=== PATIENT | female | born 1995 | race American Indian/Alaskan Native ===

== ENCOUNTER 2016-12-24 06:08 | Emergency (ER) | payer SELFPAY ==
[2016-12-24 06:17] VITALS: BP 124/75
[2016-12-24 06:46] LABS: Basophils % (Auto) 0.3 % (0.0-1.8); Eosinophils % (Auto) 0.9 % (0.0-4.3); Mean Corpuscular HGB Conc 29 % (30-34); Platelet Count 208 K/mm3 (140-440); Red Blood Count 5.27 M/mm3 (3.65-5.03); Red Cell Distribution Width 19.1 % (13.2-15.2); White Blood Count 11.6 K/mm3 (4.5-11.0)
[2016-12-24 06:57] LABS: Alanine Aminotransferase 16 units/L (7-56); Albumin/Globulin Ratio 1.1 %; Alkaline Phosphatase 62 units/L (35-129); Anion Gap 18 mmol/L; BUN/Creatinine Ratio 9; Blood Urea Nitrogen 6 mg/dL (7-17); Calcium 8.9 mg/dL (8.4-10.2); Carbon Dioxide 22 mmol/L (22-30); Chloride 100.4 mmol/L (98-107); Glucose 99 mg/dL (65-100); Lipase 48 units/L (13-60); Potassium 3.9 mmol/L (3.6-5.0); Sodium 136 mmol/L (137-145); Total Protein 7.5 g/dL (6.3-8.2)
[2016-12-24 06:58] LABS: Hematocrit 30.8 % (30.3-42.9); Hemoglobin 8.9 gm/dl (10.1-14.3)
[2016-12-24 06:59] LABS: Mean Corpuscular Hemoglobin 17 pg (28-32); Mean Corpuscular Volume 59 fl (79-97)
[2016-12-24 08:09] LABS: Bilirubin,Urine NEG (Negative); Blood,Urine NEG (Negative); Ketones,Urine NEG (Negative); Leukocyte Esterase,Urine SM (Negative); Mucus,Urine FEW /HPF; Nitrite,Urine NEG (Negative); Protein,Urine <15 mg/dL mg/dL (Negative); Urobilinogen,Urine < 2.0 mg/dL (<2.0)
== END 2016-12-24 10:45 | disposition left against medical advice (07) ==
LOC: ED 06:08
DX: R10.10 Upper abdominal pain, unspecified (principal); Z53.21 Procedure and treatment not carried out due to patient leaving prior to being seen by health care provider
CPT/HCPCS: 36415; 80053; 81001; 83690; 84703; 85025

== ENCOUNTER 2016-12-26 12:46 | Inpatient (IN) | payer SELFPAY ==
[2016-12-26 13:27] LABS: Bilirubin,Urine NEG (Negative); Blood,Urine NEG (Negative); Ketones,Urine NEG (Negative); Leukocyte Esterase,Urine MOD (Negative); Mucus,Urine FEW /HPF; Nitrite,Urine NEG (Negative)
[2016-12-26 13:41] LABS: Basophils % (Auto) 0.3 % (0.0-1.8); Hematocrit 28.4 % (30.3-42.9); Hemoglobin 8.6 gm/dl (10.1-14.3); Mean Corpuscular HGB Conc 30 % (30-34); Platelet Count 179 K/mm3 (140-440); Red Blood Count 4.85 M/mm3 (3.65-5.03); White Blood Count 15.4 K/mm3 (4.5-11.0)
[2016-12-26 13:54] LABS: Mean Corpuscular Hemoglobin 18 pg (28-32); Mean Corpuscular Volume 59 fl (79-97)
[2016-12-26 13:57] LABS: Alanine Aminotransferase 38 units/L (7-56); Albumin 3.8 g/dL (3.9-5); Alkaline Phosphatase 77 units/L (35-129); Anion Gap 19 mmol/L; BUN/Creatinine Ratio 10; Blood Urea Nitrogen 8 mg/dL (7-17); Calcium 8.6 mg/dL (8.4-10.2); Carbon Dioxide 22 mmol/L (22-30); Chloride 98.8 mmol/L (98-107); Glucose 97 mg/dL (65-100); Lipase 40 units/L (13-60); Potassium 4.2 mmol/L (3.6-5.0); Sodium 136 mmol/L (137-145); Total Protein 7.5 g/dL (6.3-8.2)
[2016-12-26] MEDS ORDERED: PEPCID IV ONE (20:21)
[2016-12-26] MEDS ORDERED: CARAFATE PO ONE (20:21)
[2016-12-26] MEDS ORDERED: BENTYL PO ONE ×2 (20:21→22:00)
[2016-12-26] MEDS ORDERED: NACL 0.9% 500 ML 500 ML IV ONE (20:21)
[2016-12-26] MEDS ORDERED: TORADOL IV ONE (20:23)
[2016-12-26] MEDS ORDERED: NACL 0.9% 1000 ML 1,000 ML IV ONE ×2 (20:23→23:01)
[2016-12-26] MEDS ORDERED: TYLENOL PO ONE (20:23)
--- NOTE | 2016-12-26 20:23 | Emergency Department Report ---
ED General Adult HPI - General Chief complaint: Abdominal Pain Stated complaint: ABDOMINAL PAIN Time Seen by Provider: 12/26/16 20:13 Source: patient, RN notes reviewed, old records reviewed Mode of arrival: Ambulatory Limitations: No Limitations - History of Present Illness Initial comments: This is a 21-year-old female. The patient is previously unknown to this provider. Patient does not have a primary care doctor, denies chronic medical conditions and surgical history. Patient presents to the ER with epigastric, and bilateral lower quadrant abdominal pain. The pain has been present for 4-5 days. It is "all over." He does not have exacerbating or relieving factors. Patient indicated that she had nausea and vomiting, however this resolved 2 days ago. She is not having urinary symptoms or any gynecologic symptoms. -: Gradual Location: abdomen Radiation: non-radiation Severity scale (0 -10): 8 Quality: burning, aching Consistency: intermittent Improves with: none Worsens with: none Associated Symptoms: loss of appetite, malaise, nausea/vomiting, weakness. denies: confusion, chest pain, cough - Related Data Home Medications Medication Instructions Recorded Confirmed Last Taken No Known Home Medications [No 12/27/16 12/27/16 Unknown Reported Home Medications] Allergies Allergy/AdvReac Type Severity Reaction Status Date / Time fish derived Allergy Swelling Verified 12/24/16 06:10 strawberry Allergy Swelling Verified 12/24/16 06:10 ED Review of Systems ROS: Stated complaint: ABDOMINAL PAIN Other details as noted in HPI Constitutional: denies: fever Eyes: denies: vision change ENT: denies: epistaxis Respiratory: denies: cough Cardiovascular: as per HPI. denies: chest pain Gastrointestinal: abdominal pain Genitourinary: denies: dysuria Musculoskeletal: denies: back pain Neurological: denies: headache Psychiatric: as per HPI, anxiety ED Past Medical Hx - Past Medical History Hx Asthma: Yes - Social History Smoking Status: Current Every Day Smoker Substance Use Type: Alcohol - Medications Home Medications: Home Medications Medication Instructions Recorded Confirmed Last Taken Type No Known Home Medications [No 12/27/16 12/27/16 Unknown History Reported Home Medications] ED Physical Exam - General Limitations: No Limitations General appearance: alert, in no apparent distress - Head Head exam: Present: atraumatic, normocephalic - Eye Eye exam: Present: normal appearance, EOMI. Absent: nystagmus - ENT ENT exam: Present: normal exam, normal orophraynx, mucous membranes moist, normal external ear exam - Neck Neck exam: Present: normal inspection, full ROM. Absent: tenderness, meningismus - Respiratory Respiratory exam: Present: normal lung sounds bilaterally. Absent: respiratory distress - Cardiovascular Cardiovascular Exam: Present: normal rhythm, tachycardia, normal heart sounds. Absent: systolic murmur, diastolic murmur, rubs, gallop - GI/Abdominal GI/Abdominal exam: Present: soft, tenderness, normal bowel sounds, other ( epigastric tenderness. Suprapubic tenderness. No lower abdominal tenderness.) . Absent: distended, guarding, rebound, pulsatile mass - External exam: Present: normal external exam Speculum exam: Present: normal speculum exam. Absent: erythema, cervical discharge, vaginal bleeding Bi-manual exam: Present: normal bi-manual exam, other (escorted by nurse Crista Rg). Absent: cervical motion tendernes, adnexal tenderness, adnexal mass, uterine enlargement, uterine tenderness - Extremities Exam Extremities exam: Present: normal inspection, full ROM, normal capillary refill. Absent: pedal edema, calf tenderness - Back Exam Back exam: Present: normal inspection, full ROM. Absent: tenderness, CVA tenderness (R), paraspinal tenderness - Neurological Exam Neurological exam: Present: alert, oriented X3, normal gait, other (Extraocular movements intact. Tongue midline. No facial droop. Facial sensation intact to light touch in the V1, V2, V3 distribution bilaterally. 5 and 5 strength in 4 extremities.. Sensation is intact to light touch in 4 extremities.). Absent : motor sensory deficit - Psychiatric Psychiatric exam: Present: normal affect, normal mood - Skin Skin exam: Present: warm, dry, intact, normal color. Absent: rash ED Course Vital Signs 12/26/16 12/26/16 12/26/16 12:53 19:10 19:11 Temperature 99.2 F 99.6 F Pulse Rate 111 H 91 H Respiratory 20 16 16 Rate Blood Pressure 113/72 Blood Pressure 120/63 [Left] O2 Sat by Pulse 99 99 99 Oximetry 12/26/16 12/26/16 12/26/16 21:40 21:42 22:12 Temperature Pulse Rate Respiratory 18 18 18 Rate Blood Pressure Blood Pressure [Left] O2 Sat by Pulse Oximetry 12/26/16 12/26/16 12/26/16 22:40 23:29 23:30 Temperature Pulse Rate Respiratory 18 Rate Blood Pressure 103/48 103/48 Blood Pressure [Left] O2 Sat by Pulse 96 Oximetry 12/26/16 12/26/16 12/26/16 23:35 23:41 23:51 Temperature Pulse Rate Respiratory Rate Blood Pressure 103/48 103/48 103/48 Blood Pressure [Left] O2 Sat by Pulse 99 99 100 Oximetry 12/27/16 12/27/16 12/27/16 00:01 00:11 00:21 Temperature Pulse Rate Respiratory Rate Blood Pressure 105/76 105/76 105/76 Blood Pressure [Left] O2 Sat by Pulse 100 99 99 Oximetry 12/27/16 00:30 Temperature Pulse Rate Respiratory Rate Blood Pressure 105/76 Blood Pressure [Left] O2 Sat by Pulse 67 L Oximetry - Reevaluation(s) Reevaluation #1: 12/26/16 21:48 Differential diagnosis, including but not limited to: Cystitis, pelvic inflammatory disease, hiatal hernia, pancreatitis, duodenitis, enteritis Assessment and plan: 21-year-old female with complaint of diffuse abdominal pain , low-grade temperature, tachycardia, no lower abdominal tenderness, and benign gynecologic examination. Her urinalysis is appreciated, however she denies urinary symptoms, and has a benign gynecologic examination. Therefore think pelvic inflammatory disease is unlikely, however gonorrhea/chlamydia screen have been sent. The patient's pain was treated with appropriate pain medication, her tachycardia resolved, and she was able to tolerate liquid feeds. Given lack of gynecologic tenderness, do not feel that patient requires an emergent pelvic ultrasound, a CT scan of abdomen and pelvis was performed, and results are pending at this time. Reevaluation #2: 12/26/16 23:00 CT scan of the abdomen and pelvis suggests a calculus cholecystitis. Patient has tachycardia, leukocytosis, low-grade temperature, is meeting criteria for systemic inflammatory response syndrome. Case discussed with general surgeon on -call, Dr. dowd, he recommends nothing by mouth after midnight, is agreeable to IV Zosyn, and recommends medical admission, and he will consult. Case is presented to the Hospital physician, Dr. Oropeza, he graciously except the patient to the medical service. A right upper quadrant ultrasound was ordered. I will defer to the inpatient team to follow this up. 12/27/16 01:37 ED Medical Decision Making - Lab Data Result diagrams: 12/27/16 06:46 12/27/16 06:46 Vital Signs 12/26/16 12/26/16 12/26/16 12:53 19:10 19:11 Temperature 99.2 F 99.6 F Pulse Rate 111 H 91 H Respiratory 20 16 16 Rate Blood Pressure 113/72 Blood Pressure 120/63 [Left] O2 Sat by Pulse 99 99 99 Oximetry 12/26/16 12/26/16 21:40 21:42 Temperature Pulse Rate Respiratory 18 18 Rate Blood Pressure Blood Pressure [Left] O2 Sat by Pulse Oximetry Lab Results 12/26/16 12/26/16 12/26/16 Range/Units 12:59 12:59 13:11 WBC 15.4 H (4.5-11.0) K/mm3 RBC 4.85 (3.65-5.03) M/mm3 Hgb 8.6 L (10.1-14.3) gm/dl Hct 28.4 L (30.3-42.9) % MCV 59 L (79-97) fl MCH 18 L (28-32) pg MCHC 30 (30-34) % RDW 19.0 H (13.2-15.2) % Plt Count 179 (140-440) K/mm3 Lymph % (Auto) 13.8 (13.4-35.0) % [place] % (Auto) 8.6 H (0.0-7.3) % Eos % (Auto) 1.0 (0.0-4.3) % Baso % (Auto) 0.3 (0.0-1.8) % Lymph # 2.1 (1.2-5.4) K/mm3 [place] # 1.3 H (0.0-0.8) K/mm3 Eos # 0.2 (0.0-0.4) K/mm3 Baso # 0.0 (0.0-0.1) K/mm3 Seg Neutrophils % 76.3 H (40.0-70.0) % Seg Neutrophils # 11.8 H (1.8-7.7) K/mm3 Sodium 136 L (137-145) mmol/L Potassium 4.2 (3.6-5.0) mmol/L Chloride 98.8 (98-107) mmol/L Carbon Dioxide 22 (22-30) mmol/L Anion Gap 19 mmol/L BUN 8 (7-17) mg/dL Creatinine 0.8 (0.7-1.2) mg/dL Estimated GFR > 60 ml/min BUN/Creatinine Ratio 10 % Glucose 97 (65-100) mg/dL Calcium 8.6 (8.4-10.2) mg/dL Total Bilirubin 0.40 (0.1-1.2) mg/dL AST 36 (5-40) units/L ALT 38 (7-56) units/L Alkaline Phosphatase 77 (35-129) units/L Total Protein 7.5 (6.3-8.2) g/dL Albumin 3.8 L (3.9-5) g/dL Albumin/Globulin Ratio 1.0 % Lipase 40 (13-60) units/L Urine Color Yellow (Yellow) Urine Turbidity Clear (Clear) Urine pH 6.0 (5.0-7.0) Ur Specific [place] 1.019 (1.003-1.030) Urine Protein 30 mg/dl (Negative) mg/dL Urine Glucose (UA) Neg (Negative) mg/dL Urine Ketones Neg (Negative) mg/dL Urine Blood Neg (Negative) Urine Nitrite Neg (Negative) Urine Bilirubin Neg (Negative) Urine Urobilinogen 4.0 (<2.0) mg/dL Ur Leukocyte Esterase Mod (Negative) Urine WBC (Auto) 25.0 H (0.0-6.0) /HPF Urine RBC (Auto) 4.0 (0.0-6.0) /HPF U Epithel Cells (Auto) 3.0 (0-13.0) /HPF Urine Mucus Few /HPF Urine HCG, Qual (Negative) 12/26/16 Range/Units 13:55 WBC (4.5-11.0) K/mm3 RBC (3.65-5.03) M/mm3 Hgb (10.1-14.3) gm/dl Hct (30.3-42.9) % MCV (79-97) fl MCH (28-32) pg MCHC (30-34) % RDW (13.2-15.2) % Plt Count (140-440) K/mm3 Lymph % (Auto) (13.4-35.0) % [place] % (Auto) (0.0-7.3) % Eos % (Auto) (0.0-4.3) % Baso % (Auto) (0.0-1.8) % Lymph # (1.2-5.4) K/mm3 [place] # (0.0-0.8) K/mm3 Eos # (0.0-0.4) K/mm3 Baso # (0.0-0.1) K/mm3 Seg Neutrophils % (40.0-70.0) % Seg Neutrophils # (1.8-7.7) K/mm3 Sodium (137-145) mmol/L Potassium (3.6-5.0) mmol/L Chloride (98-107) mmol/L Carbon Dioxide (22-30) mmol/L Anion Gap mmol/L BUN (7-17) mg/dL Creatinine (0.7-1.2) mg/dL Estimated GFR ml/min BUN/Creatinine Ratio % Glucose (65-100) mg/dL Calcium (8.4-10.2) mg/dL Total Bilirubin (0.1-1.2) mg/dL AST (5-40) units/L ALT (7-56) units/L Alkaline Phosphatase (35-129) units/L Total Protein (6.3-8.2) g/dL Albumin (3.9-5) g/dL Albumin/Globulin Ratio % Lipase (13-60) units/L Urine Color (Yellow) Urine Turbidity (Clear) Urine pH (5.0-7.0) Ur Specific [place] (1.003-1.030) Urine Protein (Negative) mg/dL Urine Glucose (UA) (Negative) mg/dL Urine Ketones (Negative) mg/dL Urine Blood (Negative) Urine Nitrite (Negative) Urine Bilirubin (Negative) Urine Urobilinogen (<2.0) mg/dL Ur Leukocyte Esterase (Negative) Urine WBC (Auto) (0.0-6.0) /HPF Urine RBC (Auto) (0.0-6.0) /HPF U Epithel Cells (Auto) (0-13.0) /HPF Urine Mucus /HPF Urine HCG, Qual Negative (Negative) - Radiology Data Radiology results: pending, report reviewed Critical care attestation.: If time is entered above; I have spent that time in minutes in the direct care of this critically ill patient, excluding procedure time. ED Disposition Clinical Impression: SIRS (systemic inflammatory response syndrome), Acute acalculous cholecystitis Disposition: DC-09 OP ADMIT IP TO THIS HOSP Is pt being admited?: Yes Condition: Good
--- NOTE | 2016-12-26 22:04 | Cat Scan Report ---
FINAL REPORT PROCEDURE: CT ABDOMEN PELVIS W CON TECHNIQUE: Computerized axial tomography of the abdomen and pelvis was performed after the IV injection of iodinated nonionic contrast. HISTORY: abd pain COMPARISON: No prior studies are available for comparison. FINDINGS: Visualized lower thorax: No significant abnormality. Liver: Normal size and attenuation. Spleen: Normal size and attenuation. Gallbladder and biliary system: There is significant thickening of the gallbladder wall. No discrete stones are seen. There is no biliary ductal dilatation. Findings suggest acute acalculous cholecystitis.. Pancreas: Normal. Adrenals: Normal. Kidneys: There are tiny stones in the right kidney. There are no ureteral stones. There is no hydronephrosis.. GI tract: There is no bowel obstruction, colitis or enteritis. The appendix is normal.. Lymph nodes and mesentery: There are borderline prominent mesenteric and retroperitoneal lymph nodes which are nonspecific but could be reactive.. Vasculature: Normal. Bladder: Normal. Reproductive organs: Uterus is unremarkable. Ovaries are unremarkable.. Peritoneum: There is minimal free pelvic fluid which is nonspecific and could be related to ovarian cyst rupture.. Musculoskeletal structures: No significant abnormality. Other: None. IMPRESSION: There is significant thickening of the gallbladder wall. No discrete stones are seen. There is no biliary ductal dilatation. Findings suggest acute acalculous cholecystitis.. There are tiny stones in the right kidney. There are no ureteral stones. There is no hydronephrosis.. There is no bowel obstruction, colitis or enteritis. The appendix is normal.. There are borderline prominent mesenteric and retroperitoneal lymph nodes which are nonspecific but could be reactive.. Uterus is unremarkable. Ovaries are unremarkable.. There is minimal free pelvic fluid which is nonspecific and could be related to ovarian cyst rupture..
[2016-12-26] MEDS ORDERED: ZOSYN/NS 4.5GM/100ML 4.5 GM/100 ML VIAL IV ONE (22:54)
--- NOTE | 2016-12-26 23:21 | History and Physical Report ---
History of Present Illness Date of examination: 12/26/16 Chief complaint: Abdominal pain History of present illness: 21-year-old -[place] female with no significant past medical history presented to the emergency department complaining of epigastric pain for the last 4 days. Pain is sharp, 10 out of 10, with radiation to the back, associated with nausea and vomiting, no alleviating or aggravating factors. Patient denied fever, chills, diarrhea, loss of appetite. Patient has been constant for the last 4 days. No previous history of gallstones. REVIEW OF SYSTEMS: GENERAL: no weight change, no fatigue, no fever HEAD: no head ache EYES: no blurry vision, no acute visual loss EARS: no hearing loss, no discharge, no earache NOSE: no stuffiness, no sneezing, no discharge MOUTH, THROAT AND NECK: no bleeding gums, no sore throat, no swollen neck CARDIAC: no palpitations, no dyspnea on exertion, no orthopnea, no PND, no edema , no chest pain RESPIRATORY: no shortness of breath, no wheeze, no cough, no sputum, no hemoptysis, no asthma GI: As stated in the HPI. URINARY: no change in frequency, no urgency, no polyuria, no hematuria, no incontinence MUSCULOSKELETAL: no muscle weakness, no pain, no joint stiffness NEUROLOGIC: no loss of sensation/numbness, no tingling, no tremors, no weakness/ paralysis HEMATOLOGIC: no anemia, no easy bruising SKIN: no rashes ENDOCRINE: no heat/cold intolerance, no polyuria, no polydipsia, no thyroid problems, no diabetes PSYCHIATRIC: no anxiety, no depression, no suicidal ideations Past History Past Medical History: No medical history Past Surgical History: No surgical history Social history: smoking (5-6 cigarettes a day), full code. denies: alcohol abuse, prescription drug abuse, IV drug use Family history: stroke (dad) Medications and Allergies Allergies Allergy/AdvReac Type Severity Reaction Status Date / Time fish derived Allergy Swelling Verified 12/24/16 06:10 strawberry Allergy Swelling Verified 12/24/16 06:10 Active Meds: Active Medications Hydromorphone HCl (Dilaudid) 0.5 mg IV Q3H PRN PRN Reason: Pain , Severe (7-10) Piperacillin Sod/Tazobactam Sod (Zosyn/Ns 4.5gm/100ml) 4.5 gm in 100 mls @ 200 mls/hr IV ONCE.ED ONE Stop: 12/26/16 23:23 Sodium Chloride (Nacl 0.9% 1000 Ml) 1,000 mls @ 999 mls/hr IV BOLUS ONE Stop: 12/27/16 00:01 Piperacillin Sod/Tazobactam Sod (Zosyn/Ns 4.5gm/100ml) 4.5 gm in 100 mls @ 200 mls/hr IV Q6HR KATY PRN Reason: Protocol Exam - Physical Exam Narrative exam: Not in cardiopulmonary distress. The patient appeared well nourished and normally developed. Vital signs as documented. Head exam is unremarkable. No scleral icterus . Neck is without jugular venous distension, thyromegaly, or carotid bruits. Lungs are clear to auscultation. Cardiac exam reveals regular rate and Rhythm. First and second heart sounds normal. No murmurs, rubs or gallops. Abdominal exam reveals mild right upper quadrant pain. Extremities are nonedematous and both femoral and pedal pulses are normal. [employer]ER: Alert and oriented 3. No focal weakness. - Constitutional Vitals: Temp Pulse Resp BP Pulse Ox 99.6 F 91 H 18 120/63 99 12/26/16 19:10 12/26/16 19:10 12/26/16 22:40 12/26/16 19:10 12/26/16 19:11 Results - Labs CBC & Chem 7: 12/26/16 12:59 12/26/16 12:59 Labs: Laboratory Last Values WBC 15.4 K/mm3 (4.5-11.0) H 12/26/16 12:59 RBC 4.85 M/mm3 (3.65-5.03) 12/26/16 12:59 Hgb 8.6 gm/dl (10.1-14.3) L 12/26/16 12:59 Hct 28.4 % (30.3-42.9) L 12/26/16 12:59 MCV 59 fl (79-97) L 12/26/16 12:59 MCH 18 pg (28-32) L 12/26/16 12:59 MCHC 30 % (30-34) 12/26/16 12:59 RDW 19.0 % (13.2-15.2) H 12/26/16 12:59 Plt Count 179 K/mm3 (140-440) 12/26/16 12:59 Lymph % (Auto) 13.8 % (13.4-35.0) 12/26/16 12:59 [place] % (Auto) 8.6 % (0.0-7.3) H 12/26/16 12:59 Eos % (Auto) 1.0 % (0.0-4.3) 12/26/16 12:59 Baso % (Auto) 0.3 % (0.0-1.8) 12/26/16 12:59 Lymph # 2.1 K/mm3 (1.2-5.4) 12/26/16 12:59 [place] # 1.3 K/mm3 (0.0-0.8) H 12/26/16 12:59 Eos # 0.2 K/mm3 (0.0-0.4) 12/26/16 12:59 Baso # 0.0 K/mm3 (0.0-0.1) 12/26/16 12:59 Seg Neutrophils % 76.3 % (40.0-70.0) H 12/26/16 12:59 Seg Neutrophils # 11.8 K/mm3 (1.8-7.7) H 12/26/16 12:59 Sodium 136 mmol/L (137-145) L 12/26/16 12:59 Potassium 4.2 mmol/L (3.6-5.0) 12/26/16 12:59 Chloride 98.8 mmol/L (98-107) 12/26/16 12:59 Carbon Dioxide 22 mmol/L (22-30) 12/26/16 12:59 Anion Gap 19 mmol/L 12/26/16 12:59 BUN 8 mg/dL (7-17) 12/26/16 12:59 Creatinine 0.8 mg/dL (0.7-1.2) 12/26/16 12:59 Estimated GFR > 60 ml/min 12/26/16 12:59 BUN/Creatinine Ratio 10 % 12/26/16 12:59 Glucose 97 mg/dL (65-100) 12/26/16 12:59 Calcium 8.6 mg/dL (8.4-10.2) 12/26/16 12:59 Total Bilirubin 0.40 mg/dL (0.1-1.2) 12/26/16 12:59 AST 36 units/L (5-40) 12/26/16 12:59 ALT 38 units/L (7-56) 12/26/16 12:59 Alkaline Phosphatase 77 units/L (35-129) 12/26/16 12:59 Total Protein 7.5 g/dL (6.3-8.2) 12/26/16 12:59 Albumin 3.8 g/dL (3.9-5) L 12/26/16 12:59 Albumin/Globulin Ratio 1.0 % 12/26/16 12:59 Lipase 40 units/L (13-60) 12/26/16 12:59 Urine Color Yellow (Yellow) 12/26/16 13:11 Urine Turbidity Clear (Clear) 12/26/16 13:11 Urine pH 6.0 (5.0-7.0) 12/26/16 13:11 Ur Specific [place] 1.019 (1.003-1.030) 12/26/16 13:11 Urine Protein 30 mg/dl mg/dL (Negative) 12/26/16 13:11 Urine Glucose (UA) Neg mg/dL (Negative) 12/26/16 13:11 Urine Ketones Neg mg/dL (Negative) 12/26/16 13:11 Urine Blood Neg (Negative) 12/26/16 13:11 Urine Nitrite Neg (Negative) 12/26/16 13:11 Urine Bilirubin Neg (Negative) 12/26/16 13:11 Urine Urobilinogen 4.0 mg/dL (<2.0) 12/26/16 13:11 Ur Leukocyte Esterase Mod (Negative) 12/26/16 13:11 Urine WBC (Auto) 25.0 /HPF (0.0-6.0) H 12/26/16 13:11 Urine RBC (Auto) 4.0 /HPF (0.0-6.0) 12/26/16 13:11 U Epithel Cells (Auto) 3.0 /HPF (0-13.0) 12/26/16 13:11 Urine Mucus Few /HPF 12/26/16 13:11 Urine HCG, Qual Negative (Negative) 12/26/16 13:55 - Imaging and Cardiology CT scan - abdomen: report reviewed (acalculous cholecystitis) US - abdomen: report reviewed (cholelithiasis, sludge filling the gallbladder) Assessment and Plan Assessment and plan: Chronic acalculus cholecystitis - CT was suggestive of acalculus cholecystitis - Ultrasound of the abdomen suggestive of cholelithiasis and sludge filling the gallbladder - Surgery was consulted by the emergency doctor and he recommended to be nothing by mouth after midnight and evaluate her in the morning Sepsis - IV Zosyn, IV fluids UTI - Continue his IV antibiotics DVT prophylaxis - SCDs because patient may have surgery in the morning Disposition - to Med/Surg floor. Advance Directives: Yes VTE prophylaxis?: Mechanical Reason for no VTE Prophylaxis: Surgical contraindication Plan of care discussed with patient/family: Yes
--- NOTE | 2016-12-27 00:07 | Ultrasound Report ---
FINAL REPORT EXAM: US ABDOMEN LIMITED HISTORY: abd pain TECHNIQUE: Routine sonographic evaluation was obtained of the right upper outer quadrant. Correlation with the CT scan of the abdomen and pelvis of 12/26/2016 was reviewed. FINDINGS: The gallbladder is normal in size and contains sludge and shadowing stones. One of the stones is in the neck of the gallbladder. There is mild gallbladder wall thickening measuring 2.3 millimeters. A Wiley sign was not elicited when scanning over the gallbladder. The common bile duct is normal caliber 5.4 millimeters. The liver is normal in size and echotexture. Free fluid is not seen. The right kidney shows no evidence of hydronephrosis. IMPRESSION: Cholelithiasis and sludge filling the gallbladder. No definite secondary signs of acute cholecystitis. Normal biliary tree. No evidence of right-sided hydronephrosis.
[2016-12-27] MEDS: ZOSYN/NS 4.5GM/100ML 4.5 GM/100 ML VIAL IV SCH ×4 (06:21→23:47)
[2016-12-27] MEDS: NACL 0.9% 1000 ML 1,000 ML IV SCH ×2 (06:21→18:36)
[2016-12-27 07:37] LABS: Anion Gap 18 mmol/L; BUN/Creatinine Ratio 11; Blood Urea Nitrogen 9 mg/dL (7-17); Calcium 7.6 mg/dL (8.4-10.2); Carbon Dioxide 22 mmol/L (22-30); Chloride 105.3 mmol/L (98-107); Glucose 86 mg/dL (65-100); Potassium 3.8 mmol/L (3.6-5.0); Sodium 141 mmol/L (137-145)
[2016-12-27 07:39] LABS: Basophils % (Auto) 0.6 % (0.0-1.8); Eosinophils % (Auto) 3.1 % (0.0-4.3); Hematocrit 25.4 % (30.3-42.9); Hemoglobin 7.8 gm/dl (10.1-14.3); Mean Corpuscular HGB Conc 31 % (30-34); Platelet Count 172 K/mm3 (140-440); Red Blood Count 4.35 M/mm3 (3.65-5.03); Red Cell Distribution Width 18.7 % (13.2-15.2); White Blood Count 10.5 K/mm3 (4.5-11.0)
[2016-12-27 07:54] LABS: Mean Corpuscular Hemoglobin 18 pg (28-32); Mean Corpuscular Volume 59 fl (79-97)
--- NOTE | 2016-12-27 09:35 | Progress Note ---
Assessment and Plan Assessment and plan: 21-year-old -[place] female with no significant past medical history presented to the emergency department complaining of epigastric pain x 4days Acute calculus cholecystitis - radiolucent stones which were not seen on CT but visualized on US - Surgery was consulted , keep NPO -planned for Lap ander, minimally invasive approach Sepsis - IV Zosyn, IV fluids UTI? - Continue IV antibiotics, fup urine cx dvt ppx early ambulation History Interval history: she is still c/o RUQ pain, and anorexia, pain is dull, 6/10, exacerbated by eating, non radiating, relieved by fasting Hospitalist Physical - Constitutional Vitals: Temp Pulse Resp BP Pulse Ox 98.4 F 79 18 111/68 97 12/27/16 08:01 12/27/16 08:01 12/27/16 08:01 12/27/16 08:01 12/27/16 08:01 General appearance: Present: no acute distress, mild distress - EENT Eyes: Present: PERRL, EOM intact ENT: hearing intact, clear oral mucosa - Neck Neck: Present: supple, normal ROM - Respiratory Respiratory effort: normal Respiratory: bilateral: CTA - Cardiovascular Rhythm: regular Heart Sounds: Present: S1 & S2 - Extremities Extremities: no ischemia Peripheral Pulses: within normal limits - Abdominal General gastrointestinal: soft Localized gastrointestinal: tender: RUQ - Integumentary Integumentary: Present: clear, warm, dry - Psychiatric Psychiatric: appropriate mood/affect, intact judgment & insight - Neurologic Neurologic: CNII-XII intact, moves all extremities Results - Labs CBC & Chem 7: 12/27/16 06:46 12/27/16 06:46 Labs: Laboratory Last Values WBC 10.5 K/mm3 (4.5-11.0) 12/27/16 06:46 RBC 4.35 M/mm3 (3.65-5.03) 12/27/16 06:46 Hgb 7.8 gm/dl (10.1-14.3) L 12/27/16 06:46 Hct 25.4 % (30.3-42.9) L 12/27/16 06:46 MCV 59 fl (79-97) L 12/27/16 06:46 MCH 18 pg (28-32) L 12/27/16 06:46 MCHC 31 % (30-34) 12/27/16 06:46 RDW 18.7 % (13.2-15.2) H 12/27/16 06:46 Plt Count 172 K/mm3 (140-440) 12/27/16 06:46 Lymph % (Auto) 29.0 % (13.4-35.0) 12/27/16 06:46 [place] % (Auto) 9.6 % (0.0-7.3) H 12/27/16 06:46 Eos % (Auto) 3.1 % (0.0-4.3) 12/27/16 06:46 Baso % (Auto) 0.6 % (0.0-1.8) 12/27/16 06:46 Lymph # 3.1 K/mm3 (1.2-5.4) 12/27/16 06:46 [place] # 1.0 K/mm3 (0.0-0.8) H 12/27/16 06:46 Eos # 0.3 K/mm3 (0.0-0.4) 12/27/16 06:46 Baso # 0.1 K/mm3 (0.0-0.1) 12/27/16 06:46 Seg Neutrophils % 57.7 % (40.0-70.0) 12/27/16 06:46 Seg Neutrophils # 6.1 K/mm3 (1.8-7.7) 12/27/16 06:46 Sodium 141 mmol/L (137-145) 12/27/16 06:46 Potassium 3.8 mmol/L (3.6-5.0) 12/27/16 06:46 Chloride 105.3 mmol/L (98-107) 12/27/16 06:46 Carbon Dioxide 22 mmol/L (22-30) 12/27/16 06:46 Anion Gap 18 mmol/L 12/27/16 06:46 BUN 9 mg/dL (7-17) 12/27/16 06:46 Creatinine 0.8 mg/dL (0.7-1.2) 12/27/16 06:46 Estimated GFR > 60 ml/min 12/27/16 06:46 BUN/Creatinine Ratio 11 % 12/27/16 06:46 Glucose 86 mg/dL (65-100) 12/27/16 06:46 Lactic Acid 1.00 mmol/L (0.7-2.0) 12/27/16 01:25 Calcium 7.6 mg/dL (8.4-10.2) L 12/27/16 06:46 Total Bilirubin 0.40 mg/dL (0.1-1.2) 12/26/16 12:59 AST 36 units/L (5-40) 12/26/16 12:59 ALT 38 units/L (7-56) 12/26/16 12:59 Alkaline Phosphatase 77 units/L (35-129) 12/26/16 12:59 Total Protein 7.5 g/dL (6.3-8.2) 12/26/16 12:59 Albumin 3.8 g/dL (3.9-5) L 12/26/16 12:59 Albumin/Globulin Ratio 1.0 % 12/26/16 12:59 Lipase 40 units/L (13-60) 12/26/16 12:59 Urine Color Yellow (Yellow) 12/26/16 13:11 Urine Turbidity Clear (Clear) 12/26/16 13:11 Urine pH 6.0 (5.0-7.0) 12/26/16 13:11 Ur Specific [place] 1.019 (1.003-1.030) 12/26/16 13:11 Urine Protein 30 mg/dl mg/dL (Negative) 12/26/16 13:11 Urine Glucose (UA) Neg mg/dL (Negative) 12/26/16 13:11 Urine Ketones Neg mg/dL (Negative) 12/26/16 13:11 Urine Blood Neg (Negative) 12/26/16 13:11 Urine Nitrite Neg (Negative) 12/26/16 13:11 Urine Bilirubin Neg (Negative) 12/26/16 13:11 Urine Urobilinogen 4.0 mg/dL (<2.0) 12/26/16 13:11 Ur Leukocyte Esterase Mod (Negative) 12/26/16 13:11 Urine WBC (Auto) 25.0 /HPF (0.0-6.0) H 12/26/16 13:11 Urine RBC (Auto) 4.0 /HPF (0.0-6.0) 12/26/16 13:11 U Epithel Cells (Auto) 3.0 /HPF (0-13.0) 12/26/16 13:11 Urine Mucus Few /HPF 12/26/16 13:11 Urine HCG, Qual Negative (Negative) 12/26/16 13:55 - Imaging and Cardiology CT scan - abdomen: image reviewed (significant GB wall thickening, no stones) US - abdomen: image reviewed (Stones seen and cholecystitis)
--- NOTE | 2016-12-27 12:46 | Progress Note ---
Assessment and Plan Full consult dictated Healthy 21 y/o female - acute cholecystitis. anemia Pt states "feeling better" less pain Abd soft - epig & RUQ tenderness noted. films reviewed acute cholecystitis rec NPO IVF hydration IV antibiotics will monitor clinically Keep NPO until pain resolves may need to proceed with cholecystecomy during this admission if clinically doesn't improve. But would prefer to proceed with semi-elective lap GB in a couple of wks once acute inflammation subsides to improve chances of being able to perform laparscopic vs having to do open procedure Selected Entries 12/27/16 08:01 Temperature 98.4 F Pulse Rate 79 Respiratory 18 Rate Blood Pressure 111/68 Laboratory Tests 12/26/16 12/26/16 12/27/16 12:59 12:59 06:46 WBC 15.4 H 10.5 Hgb 7.8 L Hct 25.4 L Sodium Potassium Chloride Carbon Dioxide Anion Gap BUN Creatinine Calcium Iron TIBC Total Bilirubin 0.40 AST 36 ALT 38 Alkaline Phosphatase 77 Lipase 40 12/27/16 12/27/16 06:46 06:46 WBC Hgb Hct Sodium 141 Potassium 3.8 Chloride 105.3 Carbon Dioxide 22 Anion Gap 18 BUN 9 Creatinine 0.8 Calcium 7.6 L Iron 14 L TIBC 256 Total Bilirubin AST ALT Alkaline Phosphatase Lipase Objective Vital Signs - 12hr 12/27/16 12/27/16 01:31 08:01 Temperature 98.2 F 98.4 F Pulse Rate 79 79 Respiratory 14 18 Rate Blood Pressure 114/62 111/68 O2 Sat by Pulse 100 97 Oximetry - Labs 12/27/16 06:46 12/27/16 06:46 Diabetes panel 12/26/16 12/27/16 Range/Units 12:59 06:46 Sodium 136 L 141 (137-145) mmol/L Potassium 4.2 3.8 (3.6-5.0) mmol/L Chloride 98.8 105.3 (98-107) mmol/L Carbon Dioxide 22 22 (22-30) mmol/L BUN 8 9 (7-17) mg/dL Creatinine 0.8 0.8 (0.7-1.2) mg/dL Glucose 97 86 (65-100) mg/dL Calcium 8.6 7.6 L (8.4-10.2) mg/dL AST 36 (5-40) units/L ALT 38 (7-56) units/L Alkaline Phosphatase 77 (35-129) units/L Total Protein 7.5 (6.3-8.2) g/dL Albumin 3.8 L (3.9-5) g/dL Calcium panel 12/26/16 12/27/16 Range/Units 12:59 06:46 Calcium 8.6 7.6 L (8.4-10.2) mg/dL Albumin 3.8 L (3.9-5) g/dL Pituitary panel 12/26/16 12/27/16 Range/Units 12:59 06:46 Sodium 136 L 141 (137-145) mmol/L Potassium 4.2 3.8 (3.6-5.0) mmol/L Chloride 98.8 105.3 (98-107) mmol/L Carbon Dioxide 22 22 (22-30) mmol/L BUN 8 9 (7-17) mg/dL Creatinine 0.8 0.8 (0.7-1.2) mg/dL Glucose 97 86 (65-100) mg/dL Calcium 8.6 7.6 L (8.4-10.2) mg/dL Adrenal panel 12/26/16 12/27/16 Range/Units 12:59 06:46 Sodium 136 L 141 (137-145) mmol/L Potassium 4.2 3.8 (3.6-5.0) mmol/L Chloride 98.8 105.3 (98-107) mmol/L Carbon Dioxide 22 22 (22-30) mmol/L BUN 8 9 (7-17) mg/dL Creatinine 0.8 0.8 (0.7-1.2) mg/dL Glucose 97 86 (65-100) mg/dL Calcium 8.6 7.6 L (8.4-10.2) mg/dL Total Bilirubin 0.40 (0.1-1.2) mg/dL AST 36 (5-40) units/L ALT 38 (7-56) units/L Alkaline Phosphatase 77 (35-129) units/L Total Protein 7.5 (6.3-8.2) g/dL Albumin 3.8 L (3.9-5) g/dL
[2016-12-27] MEDS: DILAUDID IV PRN ×2 (14:54→23:42)
[2016-12-27] MEDS: PEPCID IV SCH ×2 (15:33→22:52)
--- NOTE | 2016-12-28 03:48 | Consultation ---
REASON FOR CONSULTATION: Rule out acute cholecystitis. HISTORY OF PRESENT ILLNESS: The patient is a healthy 21-year-old female who was admitted at this time with a chief complaint of right upper quadrant and epigastric abdominal pain. The patient denies any nausea or vomiting and states she is " PAST MEDICAL HISTORY: Negative. PAST SURGICAL HISTORY: Negative. ALLERGIES: SHELLFISH and STRAWBERRIES, which makes her tongue swell, but not allergic to any medications that she is aware of. MEDICATIONS: Takes no medications. FAMILY HISTORY: Negative. SOCIAL HISTORY: Denies any ethanol intake, smokes a pack a day for approximately 2 years. REVIEW OF SYSTEMS: Noncontributory. PHYSICAL EXAMINATION: GENERAL: At this time reveals the patient to be awake, alert, cooperative, in no acute distress. VITAL SIGNS: Show her to be afebrile with a temp of 98.4, blood pressure 111/68, pulse is 79, respirations of 18. HEENT: Pupils are equal and reactive to light and accommodation. Sclerae is nonicteric. ABDOMEN: Reveals it to be moderately obese and soft. There is mild epigastric and right upper quadrant tenderness that can be elicited on palpation. Bowel sounds are present. LABORATORY DATA: Lab work at present includes a CBC which shows a white count of 10.5, down from 15.4 on admission. H and H is noted to be low at 7.8 and 25.4. Anemia workup is in progress. Electrolytes are essentially within normal limits. Iron is low at 14. Total iron-binding capacity is 256. MCV is noted to be low at 59. LFTs are essentially normal including a total bili of 0.4, AST of 36, ALT of 38, alkaline phosphatase 77. Lipase is normal at 40. CT scan of the abdomen as well as a gallbladder ultrasound have been performed, which I have reviewed with the radiologist. Both were consistent with acute cholecystitis, some surrounding pericholecystic fluid and inflammation. IMPRESSION: At this time is that of a healthy 21-year-old female: 1. Acute cholecystitis. 2. Anemia secondary to chronic blood loss? RECOMMENDATIONS: I would keep the patient n.p.o. at this time until her pain resolves. Keep IV fluid hydration and IV antibiotics as you are doing (the patient currently on Zosyn). Appears to be clinically improving. Would keep her n.p.o. until her pain resolves. May need to proceed with cholecystectomy during this admission if clinically does not improve. However, would prefer to proceed with a semi-elective laparoscopic cholecystectomy in a couple of weeks once acute inflammation subsides to improve the chances of being able to perform this procedure laparoscopic versus having to do an open procedure. We will follow closely with you. Thank you very much for consultation. JOB# [id number] DEE/MORIS
[2016-12-28] MEDS: ZOSYN/NS 4.5GM/100ML 4.5 GM/100 ML VIAL IV SCH ×3 (06:51→17:02)
[2016-12-28] MEDS: NACL 0.9% 1000 ML 1,000 ML IV SCH ×2 (07:00→21:44)
--- NOTE | 2016-12-28 10:19 | Progress Note ---
Assessment and Plan Assessment and plan: 21-year-old -[place] female with no significant past medical history presented to the emergency department complaining of epigastric pain x 4days Acute calculus cholecystitis - radiolucent stones which were not seen on CT but visualized on US - Surgery was consulted , keep NPO -planned for Lap ander, minimally invasive approach Sepsis - IV Zosyn, IV fluids UTI? - Continue IV antibiotics, fup urine cx dvt ppx early ambulation History Interval history: she is still c/o RUQ pain, and anorexia, pain is dull, 6/10, exacerbated by eating, non radiating, relieved by fasting Hospitalist Physical - Physical exam Narrative exam: General appearance: Present: no acute distress, mild distress - EENT Eyes: Present: PERRL, EOM intact ENT: hearing intact, clear oral mucosa - Neck Neck: Present: supple, normal ROM - Respiratory Respiratory effort: normal Respiratory: bilateral: CTA - Cardiovascular Rhythm: regular Heart Sounds: Present: S1 & S2 - Extremities Extremities: no ischemia Peripheral Pulses: within normal limits - Abdominal General gastrointestinal: soft Localized gastrointestinal: tender: RUQ - Integumentary Integumentary: Present: clear, warm, dry - Psychiatric Psychiatric: appropriate mood/affect, intact judgment & insight - Neurologic Neurologic: CNII-XII intact, moves all extremities - Constitutional Vitals: Temp Pulse Resp BP Pulse Ox 98.8 F 71 20 117/68 98 12/28/16 08:25 12/28/16 08:25 12/28/16 08:25 12/28/16 08:25 12/28/16 08:25 Results - Labs CBC & Chem 7: 12/27/16 06:46 12/27/16 06:46 Labs: Laboratory Last Values WBC 10.5 K/mm3 (4.5-11.0) 12/27/16 06:46 RBC 4.35 M/mm3 (3.65-5.03) 12/27/16 06:46 Hgb 7.8 gm/dl (10.1-14.3) L 12/27/16 06:46 Hct 25.4 % (30.3-42.9) L 12/27/16 06:46 MCV 59 fl (79-97) L 12/27/16 06:46 MCH 18 pg (28-32) L 12/27/16 06:46 MCHC 31 % (30-34) 12/27/16 06:46 RDW 18.7 % (13.2-15.2) H 12/27/16 06:46 Plt Count 172 K/mm3 (140-440) 12/27/16 06:46 Lymph % (Auto) 29.0 % (13.4-35.0) 12/27/16 06:46 [place] % (Auto) 9.6 % (0.0-7.3) H 12/27/16 06:46 Eos % (Auto) 3.1 % (0.0-4.3) 12/27/16 06:46 Baso % (Auto) 0.6 % (0.0-1.8) 12/27/16 06:46 Lymph # 3.1 K/mm3 (1.2-5.4) 12/27/16 06:46 [place] # 1.0 K/mm3 (0.0-0.8) H 12/27/16 06:46 Eos # 0.3 K/mm3 (0.0-0.4) 12/27/16 06:46 Baso # 0.1 K/mm3 (0.0-0.1) 12/27/16 06:46 Seg Neutrophils % 57.7 % (40.0-70.0) 12/27/16 06:46 Seg Neutrophils # 6.1 K/mm3 (1.8-7.7) 12/27/16 06:46 Sodium 141 mmol/L (137-145) 12/27/16 06:46 Potassium 3.8 mmol/L (3.6-5.0) 12/27/16 06:46 Chloride 105.3 mmol/L (98-107) 12/27/16 06:46 Carbon Dioxide 22 mmol/L (22-30) 12/27/16 06:46 Anion Gap 18 mmol/L 12/27/16 06:46 BUN 9 mg/dL (7-17) 12/27/16 06:46 Creatinine 0.8 mg/dL (0.7-1.2) 12/27/16 06:46 Estimated GFR > 60 ml/min 12/27/16 06:46 BUN/Creatinine Ratio 11 % 12/27/16 06:46 Glucose 86 mg/dL (65-100) 12/27/16 06:46 Lactic Acid 1.00 mmol/L (0.7-2.0) 12/27/16 01:25 Calcium 7.6 mg/dL (8.4-10.2) L 12/27/16 06:46 Iron 14 ug/dL (37-170) L 12/27/16 06:46 TIBC 256 mcg/dL (250-450) 12/27/16 06:46 % Saturation 5.47 % 12/27/16 06:46 Transferrin 232 mg/dl (192-382) 12/27/16 06:46 Total Bilirubin 0.40 mg/dL (0.1-1.2) 12/26/16 12:59 AST 36 units/L (5-40) 12/26/16 12:59 ALT 38 units/L (7-56) 12/26/16 12:59 Alkaline Phosphatase 77 units/L (35-129) 12/26/16 12:59 Total Protein 7.5 g/dL (6.3-8.2) 12/26/16 12:59 Albumin 3.8 g/dL (3.9-5) L 12/26/16 12:59 Albumin/Globulin Ratio 1.0 % 12/26/16 12:59 Lipase 40 units/L (13-60) 12/26/16 12:59 Urine Color Yellow (Yellow) 12/26/16 13:11 Urine Turbidity Clear (Clear) 12/26/16 13:11 Urine pH 6.0 (5.0-7.0) 12/26/16 13:11 Ur Specific [place] 1.019 (1.003-1.030) 12/26/16 13:11 Urine Protein 30 mg/dl mg/dL (Negative) 12/26/16 13:11 Urine Glucose (UA) Neg mg/dL (Negative) 12/26/16 13:11 Urine Ketones Neg mg/dL (Negative) 12/26/16 13:11 Urine Blood Neg (Negative) 12/26/16 13:11 Urine Nitrite Neg (Negative) 12/26/16 13:11 Urine Bilirubin Neg (Negative) 12/26/16 13:11 Urine Urobilinogen 4.0 mg/dL (<2.0) 12/26/16 13:11 Ur Leukocyte Esterase Mod (Negative) 12/26/16 13:11 Urine WBC (Auto) 25.0 /HPF (0.0-6.0) H 12/26/16 13:11 Urine RBC (Auto) 4.0 /HPF (0.0-6.0) 12/26/16 13:11 U Epithel Cells (Auto) 3.0 /HPF (0-13.0) 12/26/16 13:11 Urine Mucus Few /HPF 12/26/16 13:11 Urine HCG, Qual Negative (Negative) 12/26/16 13:55
[2016-12-28] MEDS: DILAUDID IV PRN (10:41)
[2016-12-28] MEDS: PEPCID IV SCH ×2 (10:42→23:18)
--- NOTE | 2016-12-28 12:56 | Progress Note ---
Assessment and Plan Pt status quo. still requiring narcotic pain relief though states "feeling better" Abd soft. + RUQ tenderness wbc down to 10.5 surgically stable continue NPO and IV antibiotic Rx Selected Entries 12/28/16 08:25 Temperature 98.8 F Pulse Rate 71 Respiratory 20 Rate Blood Pressure 117/68 Laboratory Tests 12/27/16 06:46 WBC 10.5 Hgb 7.8 L Hct 25.4 L Objective Vital Signs - 12hr 12/28/16 08:25 Temperature 98.8 F Pulse Rate 71 Respiratory 20 Rate Blood Pressure 117/68 O2 Sat by Pulse 98 Oximetry - Labs 12/27/16 06:46 12/27/16 06:46
[2016-12-29] MEDS: ZOSYN/NS 4.5GM/100ML 4.5 GM/100 ML VIAL IV SCH ×4 (06:17→20:06)
[2016-12-29] MEDS: PEPCID IV SCH ×2 (09:52→22:03)
[2016-12-29] MEDS: NACL 0.9% 1000 ML 1,000 ML IV SCH (11:19)
--- NOTE | 2016-12-29 13:11 | Progress Note ---
Assessment and Plan Assessment and plan: --Acute gallstone cholecystitis Continue current management, surgery following Possible cholecystectomy when patient is more stable --Sepsis secondary to acute cholecystitis; continue IV Zosyn and supportive care --Obesity; counseling done advised dietary modification and exercise as tolerated as well as weight reduction --Chlamydia vaginal infection; treatment with single dose of azithromycin 1000 mg --DVT prophylaxis; SCDs and early ambulation Surgery evaluation and recommendations noted and appreciated History Interval history: Patient Seen and examined medical records reviewed No new complaints Nothing by mouth status, requests food Hospitalist Physical - Constitutional Vitals: Temp Pulse Resp BP Pulse Ox 98.5 F 59 L 20 115/59 96 12/29/16 08:07 12/29/16 08:07 12/29/16 08:07 12/29/16 08:07 12/29/16 08:07 General appearance: Present: no acute distress, well-nourished, obese - EENT Eyes: Present: PERRL, EOM intact - Neck Neck: Present: supple, normal ROM - Respiratory Respiratory effort: normal Respiratory: bilateral: diminished, negative: rales, rhonchi, wheezing - Cardiovascular Rhythm: regular Heart Sounds: Present: S1 & S2 - Extremities Extremities: no ischemia, No edema Peripheral Pulses: within normal limits - Abdominal General gastrointestinal: soft, non-tender, non-distended, normal bowel sounds - Integumentary Integumentary: Present: clear, warm - Psychiatric Psychiatric: appropriate mood/affect, cooperative - Neurologic Neurologic: CNII-XII intact, moves all extremities Results - Labs CBC & Chem 7: 12/27/16 06:46 12/27/16 06:46 Labs: Laboratory Last Values WBC 10.5 K/mm3 (4.5-11.0) 12/27/16 06:46 RBC 4.35 M/mm3 (3.65-5.03) 12/27/16 06:46 Hgb 7.8 gm/dl (10.1-14.3) L 12/27/16 06:46 Hct 25.4 % (30.3-42.9) L 12/27/16 06:46 MCV 59 fl (79-97) L 12/27/16 06:46 MCH 18 pg (28-32) L 12/27/16 06:46 MCHC 31 % (30-34) 12/27/16 06:46 RDW 18.7 % (13.2-15.2) H 12/27/16 06:46 Plt Count 172 K/mm3 (140-440) 12/27/16 06:46 Lymph % (Auto) 29.0 % (13.4-35.0) 12/27/16 06:46 [place] % (Auto) 9.6 % (0.0-7.3) H 12/27/16 06:46 Eos % (Auto) 3.1 % (0.0-4.3) 12/27/16 06:46 Baso % (Auto) 0.6 % (0.0-1.8) 12/27/16 06:46 Lymph # 3.1 K/mm3 (1.2-5.4) 12/27/16 06:46 [place] # 1.0 K/mm3 (0.0-0.8) H 12/27/16 06:46 Eos # 0.3 K/mm3 (0.0-0.4) 12/27/16 06:46 Baso # 0.1 K/mm3 (0.0-0.1) 12/27/16 06:46 Seg Neutrophils % 57.7 % (40.0-70.0) 12/27/16 06:46 Seg Neutrophils # 6.1 K/mm3 (1.8-7.7) 12/27/16 06:46 Sodium 141 mmol/L (137-145) 12/27/16 06:46 Potassium 3.8 mmol/L (3.6-5.0) 12/27/16 06:46 Chloride 105.3 mmol/L (98-107) 12/27/16 06:46 Carbon Dioxide 22 mmol/L (22-30) 12/27/16 06:46 Anion Gap 18 mmol/L 12/27/16 06:46 BUN 9 mg/dL (7-17) 12/27/16 06:46 Creatinine 0.8 mg/dL (0.7-1.2) 12/27/16 06:46 Estimated GFR > 60 ml/min 12/27/16 06:46 BUN/Creatinine Ratio 11 % 12/27/16 06:46 Glucose 86 mg/dL (65-100) 12/27/16 06:46 Lactic Acid 1.00 mmol/L (0.7-2.0) 12/27/16 01:25 Calcium 7.6 mg/dL (8.4-10.2) L 12/27/16 06:46 Iron 14 ug/dL (37-170) L 12/27/16 06:46 TIBC 256 mcg/dL (250-450) 12/27/16 06:46 % Saturation 5.47 % 12/27/16 06:46 Transferrin 232 mg/dl (192-382) 12/27/16 06:46 Total Bilirubin 0.40 mg/dL (0.1-1.2) 12/26/16 12:59 AST 36 units/L (5-40) 12/26/16 12:59 ALT 38 units/L (7-56) 12/26/16 12:59 Alkaline Phosphatase 77 units/L (35-129) 12/26/16 12:59 Total Protein 7.5 g/dL (6.3-8.2) 12/26/16 12:59 Albumin 3.8 g/dL (3.9-5) L 12/26/16 12:59 Albumin/Globulin Ratio 1.0 % 12/26/16 12:59 Lipase 40 units/L (13-60) 12/26/16 12:59 Urine Color Yellow (Yellow) 12/26/16 13:11 Urine Turbidity Clear (Clear) 12/26/16 13:11 Urine pH 6.0 (5.0-7.0) 12/26/16 13:11 Ur Specific [place] 1.019 (1.003-1.030) 12/26/16 13:11 Urine Protein 30 mg/dl mg/dL (Negative) 12/26/16 13:11 Urine Glucose (UA) Neg mg/dL (Negative) 12/26/16 13:11 Urine Ketones Neg mg/dL (Negative) 12/26/16 13:11 Urine Blood Neg (Negative) 12/26/16 13:11 Urine Nitrite Neg (Negative) 12/26/16 13:11 Urine Bilirubin Neg (Negative) 12/26/16 13:11 Urine Urobilinogen 4.0 mg/dL (<2.0) 12/26/16 13:11 Ur Leukocyte Esterase Mod (Negative) 12/26/16 13:11 Urine WBC (Auto) 25.0 /HPF (0.0-6.0) H 12/26/16 13:11 Urine RBC (Auto) 4.0 /HPF (0.0-6.0) 12/26/16 13:11 U Epithel Cells (Auto) 3.0 /HPF (0-13.0) 12/26/16 13:11 Urine Mucus Few /HPF 12/26/16 13:11 Urine HCG, Qual Negative (Negative) 12/26/16 13:55
--- NOTE | 2016-12-29 18:18 | Progress Note ---
Assessment and Plan Pt feeling much better. states "no pain" hungry Abd soft, non tender at present improving cholecystitis attempt low fat cl liq diet may advance to low fat full liq in am as gemma continue antibiotics Selected Entries 12/29/16 15:44 Temperature 98.4 F Pulse Rate 59 L Respiratory 20 Rate Blood Pressure 123/75 Objective Vital Signs - 12hr 12/29/16 12/29/16 08:07 15:44 Temperature 98.5 F 98.4 F Pulse Rate 59 L 59 L Respiratory 20 20 Rate Blood Pressure 115/59 123/75 O2 Sat by Pulse 96 98 Oximetry - Labs 12/27/16 06:46 12/27/16 06:46
[2016-12-29] MEDS ORDERED: ZITHROMAX PO ONE (22:00)
[2016-12-30] MEDS: ZOSYN/NS 4.5GM/100ML 4.5 GM/100 ML VIAL IV SCH ×4 (00:43→17:52)
[2016-12-30] MEDS: DILAUDID IV PRN (02:52)
[2016-12-30] MEDS: NACL 0.9% 1000 ML 1,000 ML IV SCH ×2 (02:52→21:18)
[2016-12-30 07:28] LABS: Basophils % (Auto) 0.6 % (0.0-1.8); Eosinophils % (Auto) 2.1 % (0.0-4.3); Hematocrit 27.3 % (30.3-42.9); Hemoglobin 8.2 gm/dl (10.1-14.3); Mean Corpuscular HGB Conc 30 % (30-34); Platelet Count 226 K/mm3 (140-440); Red Blood Count 4.63 M/mm3 (3.65-5.03); Red Cell Distribution Width 18.6 % (13.2-15.2); White Blood Count 11.4 K/mm3 (4.5-11.0)
[2016-12-30 07:32] LABS: Mean Corpuscular Volume 59 fl (79-97)
[2016-12-30 07:33] LABS: Mean Corpuscular Hemoglobin 18 pg (28-32)
[2016-12-30] MEDS: PEPCID IV SCH ×2 (09:46→23:02)
--- NOTE | 2016-12-30 12:30 | Progress Note ---
Assessment and Plan Pt feeling better. much less pain. gemma cl liq last night Abd soft, non tender at present surgically stable advance to low fat full liq today as gemma continue antibiotic Rx Selected Entries 12/29/16 12/30/16 23:08 08:06 Temperature 98.9 F Pulse Rate 68 Respiratory 18 Rate Blood Pressure 107/59 Laboratory Tests 12/27/16 12/30/16 06:46 06:55 WBC 11.4 H Hgb 7.8 L 8.2 L Hct 25.4 L 27.3 L Objective Vital Signs - 12hr 12/30/16 08:06 Temperature 98.9 F Pulse Rate 68 Respiratory 20 Rate Blood Pressure 107/59 O2 Sat by Pulse 99 Oximetry - Labs 12/30/16 06:55 12/27/16 06:46
--- NOTE | 2016-12-30 13:17 | Progress Note ---
Assessment and Plan Assessment and plan: --Acute cholecystitis: Full liquid diet advance as tolerated, continue antibiotics, Surgery following --Sepsis secondary to acute cholecystitis; continue IV Zosyn and supportive care --Obesity; counseling done advised dietary modification and exercise as tolerated as well as weight reduction --Chlamydia vaginal infection; treatment with single dose of azithromycin 1000 mg --DVT prophylaxis; SCDs and early ambulation Surgery evaluation and recommendations noted and appreciated Trejo discharge in 1-2 days if stable History Interval history: Patient seen and examined No new complaints Hospitalist Physical - Constitutional Vitals: Temp Pulse Resp BP Pulse Ox 98.9 F 68 20 107/59 99 12/30/16 08:06 12/30/16 08:06 12/30/16 08:06 12/30/16 08:06 12/30/16 08:06 General appearance: Present: no acute distress, well-nourished, obese - EENT Eyes: Present: PERRL, EOM intact - Neck Neck: Present: supple, normal ROM - Respiratory Respiratory effort: normal Respiratory: negative: rales, rhonchi, wheezing - Cardiovascular Rhythm: regular Heart Sounds: Present: S1 & S2 - Extremities Extremities: no ischemia, No edema Peripheral Pulses: within normal limits - Abdominal General gastrointestinal: soft, non-tender, non-distended, normal bowel sounds - Integumentary Integumentary: Present: clear, warm - Psychiatric Psychiatric: appropriate mood/affect, cooperative - Neurologic Neurologic: CNII-XII intact, moves all extremities Results - Labs CBC & Chem 7: 12/30/16 06:55 12/27/16 06:46 Labs: Laboratory Last Values WBC 11.4 K/mm3 (4.5-11.0) H 12/30/16 06:55 RBC 4.63 M/mm3 (3.65-5.03) 12/30/16 06:55 Hgb 8.2 gm/dl (10.1-14.3) L 12/30/16 06:55 Hct 27.3 % (30.3-42.9) L 12/30/16 06:55 MCV 59 fl (79-97) L 12/30/16 06:55 MCH 18 pg (28-32) L 12/30/16 06:55 MCHC 30 % (30-34) 12/30/16 06:55 RDW 18.6 % (13.2-15.2) H 12/30/16 06:55 Plt Count 226 K/mm3 (140-440) 12/30/16 06:55 Lymph % (Auto) 25.2 % (13.4-35.0) 12/30/16 06:55 [place] % (Auto) 6.4 % (0.0-7.3) 12/30/16 06:55 Eos % (Auto) 2.1 % (0.0-4.3) 12/30/16 06:55 Baso % (Auto) 0.6 % (0.0-1.8) 12/30/16 06:55 Lymph # 2.9 K/mm3 (1.2-5.4) 12/30/16 06:55 [place] # 0.7 K/mm3 (0.0-0.8) 12/30/16 06:55 Eos # 0.2 K/mm3 (0.0-0.4) 12/30/16 06:55 Baso # 0.1 K/mm3 (0.0-0.1) 12/30/16 06:55 Seg Neutrophils % 65.7 % (40.0-70.0) 12/30/16 06:55 Seg Neutrophils # 7.5 K/mm3 (1.8-7.7) 12/30/16 06:55 Sodium 141 mmol/L (137-145) 12/27/16 06:46 Potassium 3.8 mmol/L (3.6-5.0) 12/27/16 06:46 Chloride 105.3 mmol/L (98-107) 12/27/16 06:46 Carbon Dioxide 22 mmol/L (22-30) 12/27/16 06:46 Anion Gap 18 mmol/L 12/27/16 06:46 BUN 9 mg/dL (7-17) 12/27/16 06:46 Creatinine 0.8 mg/dL (0.7-1.2) 12/27/16 06:46 Estimated GFR > 60 ml/min 12/27/16 06:46 BUN/Creatinine Ratio 11 % 12/27/16 06:46 Glucose 86 mg/dL (65-100) 12/27/16 06:46 Lactic Acid 1.00 mmol/L (0.7-2.0) 12/27/16 01:25 Calcium 7.6 mg/dL (8.4-10.2) L 12/27/16 06:46 Iron 14 ug/dL (37-170) L 12/27/16 06:46 TIBC 256 mcg/dL (250-450) 12/27/16 06:46 % Saturation 5.47 % 12/27/16 06:46 Transferrin 232 mg/dl (192-382) 12/27/16 06:46 Total Bilirubin 0.40 mg/dL (0.1-1.2) 12/26/16 12:59 AST 36 units/L (5-40) 12/26/16 12:59 ALT 38 units/L (7-56) 12/26/16 12:59 Alkaline Phosphatase 77 units/L (35-129) 12/26/16 12:59 Total Protein 7.5 g/dL (6.3-8.2) 12/26/16 12:59 Albumin 3.8 g/dL (3.9-5) L 12/26/16 12:59 Albumin/Globulin Ratio 1.0 % 12/26/16 12:59 Lipase 40 units/L (13-60) 12/26/16 12:59 Urine Color Yellow (Yellow) 12/26/16 13:11 Urine Turbidity Clear (Clear) 12/26/16 13:11 Urine pH 6.0 (5.0-7.0) 12/26/16 13:11 Ur Specific [place] 1.019 (1.003-1.030) 12/26/16 13:11 Urine Protein 30 mg/dl mg/dL (Negative) 12/26/16 13:11 Urine Glucose (UA) Neg mg/dL (Negative) 12/26/16 13:11 Urine Ketones Neg mg/dL (Negative) 12/26/16 13:11 Urine Blood Neg (Negative) 12/26/16 13:11 Urine Nitrite Neg (Negative) 12/26/16 13:11 Urine Bilirubin Neg (Negative) 12/26/16 13:11 Urine Urobilinogen 4.0 mg/dL (<2.0) 12/26/16 13:11 Ur Leukocyte Esterase Mod (Negative) 12/26/16 13:11 Urine WBC (Auto) 25.0 /HPF (0.0-6.0) H 12/26/16 13:11 Urine RBC (Auto) 4.0 /HPF (0.0-6.0) 12/26/16 13:11 U Epithel Cells (Auto) 3.0 /HPF (0-13.0) 12/26/16 13:11 Urine Mucus Few /HPF 12/26/16 13:11 Urine HCG, Qual Negative (Negative) 12/26/16 13:55 C.trachomatis DNA (SDA) Detected (Not Detected) H 12/26/16 20:35 N.gonorrhoeae DNA (SDA) Not detected (Not Detected) 12/26/16 20:35
[2016-12-31] MEDS: ZOSYN/NS 4.5GM/100ML 4.5 GM/100 ML VIAL IV SCH ×3 (00:39→12:19)
--- NOTE | 2016-12-31 10:26 | Progress Note ---
Assessment and Plan Pt feeling well without compl. gemma low fat full liq diet. Did notice some hypotension on Vitals Abd soft, non tender surgically stable monitor BP advance to solid low fat diet as gemma Selected Entries 12/31/16 12/31/16 07:57 09:10 Temperature 98.1 F Pulse Rate 68 Respiratory 18 Rate Blood Pressure 74/49 94/49 Laboratory Tests 12/30/16 06:55 WBC 11.4 H Hgb 8.2 L Hct 27.3 L Objective Vital Signs - 12hr 12/31/16 12/31/16 07:57 09:10 Temperature 98.6 F 98.1 F Pulse Rate 68 Respiratory 18 18 Rate Blood Pressure 74/49 94/49 O2 Sat by Pulse 97 Oximetry - Labs 12/30/16 06:55 12/27/16 06:46
[2016-12-31] MEDS: PEPCID IV SCH (11:00)
[2016-12-31 12:45] VITALS: BP 105/69
--- NOTE | 2016-12-31 13:02 | Discharge Summary ---
Providers - Providers Date of Admission: 12/26/16 23:17 Date of discharge: 12/31/16 Attending physician: CORNELIA IVERSON 12/26/16 22:48 Consult to Physician [CONS] Urgent Consulting Provider: NATAN GAITAN Reason For Exam: abd pain Place consult to:: Dr. Gaitan Notified:: Answering Service Phone number called:: [phone] Was contact made?: Yes If yes, spoke with:: Dr. Gaitan Time called:: 22:52 Comment:: Dr. Perez (er dr) spoke with Dr. Gaitan Primary care physician: NURSE'S ASSISTANT Hospitalization Condition: Good Hospital course: --Acute cholecystitis: Full liquid diet advance as tolerated, continue antibiotics, Surgery following --Sepsis secondary to acute cholecystitis; continue IV Zosyn and supportive care --Obesity; counseling done advised dietary modification and exercise as tolerated as well as weight reduction --Chlamydia vaginal infection; treatment with single dose of azithromycin 1000 mg Disposition: DC/TX- [facility] IP Time spent for discharge: 32 min Core Measure Documentation - Palliative Care Palliative Care/ Comfort Measures: Not Applicable - Core Measures Any of the following diagnoses?: none Exam - Constitutional Vitals: Temp Pulse Resp BP Pulse Ox 97.9 F 63 20 105/69 100 12/31/16 12:42 12/31/16 12:42 12/31/16 12:42 12/31/16 12:42 12/31/16 12:42 General appearance: Present: no acute distress, well-nourished - EENT Eyes: Present: PERRL, EOM intact - Neck Neck: Present: supple, normal ROM - Respiratory Respiratory effort: normal Respiratory: negative: rales, rhonchi, wheezing - Cardiovascular Rhythm: regular Heart Sounds: Present: S1 & S2 - Extremities Extremities: no ischemia, No edema Peripheral Pulses: within normal limits - Abdominal General gastrointestinal: Present: soft, non-tender, non-distended, normal bowel sounds - Integumentary Integumentary: Present: clear, warm - Musculoskeletal Musculoskeletal: strength equal bilaterally - Psychiatric Psychiatric: appropriate mood/affect, cooperative - Neurologic Neurologic: CNII-XII intact, moves all extremities Plan Activity: no restrictions Diet: advance as tolerated, other (soft diet) Additional Instructions: If you have severe abdominal pain, nausea and vomiting , contact M.D. or go to emergency room Follow up with: PRIMARY MD NIK [Primary Care Provider] - 3-5 Days NATAN GAITAN MD [Staff Physician] - 7 Days Prescriptions: Ciprofloxacin HCl [Cipro] 500 mg PO Q12H #20 tablet Famotidine [Pepcid] 20 mg PO BID #30 tablet
[2016-12-31] MEDS ORDERED: PEPCID PO SCH (22:00)
== END 2016-12-31 16:35 | disposition short-term general hospital (02) | DRG 872 ==
LOC: ED 12:46 → 3A 23:17
PROVIDERS: ADMIT Internal Medicine; ATTEND Internal Medicine
DX: A41.9 Sepsis, unspecified organism (principal); K80.00 Calculus of gallbladder with acute cholecystitis without obstruction; R65.10 Systemic inflammatory response syndrome (SIRS) of non-infectious origin without acute organ dysfunction; Z91.013 Allergy to seafood; Z91.018 Allergy to other foods; Z82.3 Family history of stroke; F17.210 Nicotine dependence, cigarettes, uncomplicated; E66.9 Obesity, unspecified; Z68.31 Body mass index [BMI] 31.0-31.9, adult; B97.89 Other viral agents as the cause of diseases classified elsewhere
CPT/HCPCS: 36415; 74177; 76705; 80048; 80053; 81001; 81025; 82140; 83550; 83690; 85025; 87040; 87086; 87591; 96361; 96374; 96375; 99406; J1170; J1885; J2543; J7030; Q9967

== ENCOUNTER 2016-12-31 23:28 | Emergency (ER) | payer SELFPAY ==
[2016-12-31 23:47] VITALS: BP 125/76
== END 2017-01-01 03:55 | disposition left against medical advice (07) ==
LOC: ED 23:28
DX: R10.9 Unspecified abdominal pain (principal); Z53.21 Procedure and treatment not carried out due to patient leaving prior to being seen by health care provider

== ENCOUNTER 2017-05-18 16:24 | Emergency (ER) | payer OTHER ==
[2017-05-18 16:32] VITALS: BP 117/89
[2017-05-18 17:02] LABS: Basophils # (Auto) 0.1 K/mm3 (0.0-0.1); Basophils % (Auto) 0.8 % (0.0-1.8); Eosinophils # (Auto) 0.2 K/mm3 (0.0-0.4); Eosinophils % (Auto) 2.7 % (0.0-4.3); Lymphocytes # (Auto) 2.5 K/mm3 (1.2-5.4); Lymphocytes % (Auto) 41.2 % (13.4-35.0); Mean Corpuscular HGB Conc 29 % (30-34); Monocytes # (Auto) 0.5 K/mm3 (0.0-0.8); Monocytes % (Auto) 8.7 % (0.0-7.3); Platelet Count 274 K/mm3 (140-440); Red Cell Distribution Width 19.2 % (13.2-15.2)
[2017-05-18 17:17] LABS: Bacteria,Urine 1+ /HPF (Negative); Bilirubin,Urine MOD (Negative); Blood,Urine NEG (Negative); Color,Urine Amber (Yellow); Mucus,Urine 3+ /HPF; Protein,Urine <15 mg/dL mg/dL (Negative)
[2017-05-18 17:18] LABS: Hematocrit 34.4 % (30.3-42.9); Mean Corpuscular Hemoglobin 17 pg (28-32); Mean Corpuscular Volume 59 fl (79-97)
[2017-05-18 17:23] LABS: Ictotest,Urine Positive (Negative)
[2017-05-18 18:44] LABS: Alanine Aminotransferase 290 units/L (7-56); Albumin 4.2 g/dL (3.9-5); BUN/Creatinine Ratio 6; Blood Urea Nitrogen 5 mg/dL (7-17); Calcium 9.4 mg/dL (8.4-10.2); Hemolysis Index 0
== END 2017-05-18 16:49 | disposition left against medical advice (07) ==
LOC: ED 16:24
DX: R10.9 Unspecified abdominal pain (principal); Z53.21 Procedure and treatment not carried out due to patient leaving prior to being seen by health care provider
CPT/HCPCS: 36415; 80053; 81001; 85025

== ENCOUNTER 2019-03-03 14:06 | Emergency (ER) | payer SELFPAY ==
[2019-03-03 14:12] VITALS: BP 146/85
[2019-03-03 15:46] LABS: Basophils # (Auto) 0.1 K/mm3 (0.0-0.1); Basophils % (Auto) 0.7 % (0.0-1.8); Eosinophils # (Auto) 0.2 K/mm3 (0.0-0.4); Eosinophils % (Auto) 1.8 % (0.0-4.3); Hematocrit 22.2 % (30.3-42.9); Hemoglobin 6.8 gm/dl (10.1-14.3); Lymphocytes # (Auto) 2.9 K/mm3 (1.2-5.4); Lymphocytes % (Auto) 33.2 % (13.4-35.0); Mean Corpuscular HGB Conc 31 % (30-34); Mean Corpuscular Volume 56 fl (79-97); Monocytes # (Auto) 0.7 K/mm3 (0.0-0.8); Monocytes % (Auto) 7.8 % (0.0-7.3); Platelet Count 237 K/mm3 (140-440); Red Blood Count 3.98 M/mm3 (3.65-5.03); Red Cell Distribution Width 20.4 % (13.2-15.2)
[2019-03-03 16:44] LABS: BUN/Creatinine Ratio 11; Blood Urea Nitrogen 12 mg/dL (7-17); Calcium 9.5 mg/dL (8.4-10.2); Hemolysis Index 1
[2019-03-03 17:22] LABS: Bilirubin,Urine NEG (Negative); Blood,Urine LG (Negative); Color,Urine Yellow (Yellow); Mucus,Urine 2+ /HPF; Urobilinogen,Urine < 2.0 mg/dL (<2.0)
[2019-03-03 17:24] LABS: RBC,Urine > 182.0 /HPF (0.0-6.0)
[2019-03-03] MEDS ORDERED: ONDANSETRON 4 MG/2 ML INJ IV ONE (19:35)
[2019-03-03] MEDS ORDERED: KETOROLAC 30 MG/1 ML INJ IV ONE (19:35)
--- NOTE | 2019-03-03 20:16 | Emergency Department Report ---
ED Female HPI - General Chief complaint: Abdominal Pain Stated complaint: ABD PAIN/BLEEDING Time Seen by Provider: 03/03/19 19:33 Source: patient Mode of arrival: Ambulatory Limitations: No Limitations - History of Present Illness Initial comments: Mr. Mendes is a 23-year-old -Stateless female with a history of gallstones , renal stones ,and ovarian cyst. Presents for abdominal pain times one year, and vaginal bleeding times one months. States she is not not sexually active. So she is using 4 pads a day. Does have a history of slight anemia. Patient is adamant she does not want a blood transfusion Steven when questioned advises that she's not been advised that she needed blood and past. Patient denies nausea vomiting she is tolerating by mouth intake without symptoms. There's been no fever, no chills fever, no nausea or vomiting. There is pelvic cramping. MD Complaint: vaginal bleeding Onset/Timin -: month(s) Radiation: suprapubic Severity: moderate Severity scale (0 -10): 4 Quality: cramping Consistency: intermittent Improves with: none Worsens with: none Are you Now?: No Last Menstrual Period: 01/25/19 EDC: 11/01/19 Associated Symptoms: vaginal bleeding, abdominal pain (abdominal cramping ). denies: nausea/vomiting, fever/chills, headaches, loss of appetite, dysuria, hematuria, rash, shortness of breath, syncope, weakness - Related Data Sexually active: No : 1 Para: 1 A: 0 Previous Rx's Medication Instructions Recorded Last Taken Type Ciprofloxacin HCl [Cipro] 500 mg PO Q12H #20 tablet 12/31/16 Unknown Rx Famotidine [Pepcid] 20 mg PO BID #30 tablet 12/31/16 Unknown Rx Ibuprofen [Motrin 800 MG tab] 800 mg PO Q8HR PRN #30 tablet 03/03/19 Unknown Rx medroxyPROGESTERone ACETATE 10 mg PO QDAY #10 tablet 03/03/19 Unknown Rx [Provera] Allergies Allergy/AdvReac Type Severity Reaction Status Date / Time fish derived Allergy Swelling Verified 12/24/16 06:10 strawberry Allergy Swelling Verified 12/24/16 06:10 ED Review of Systems ROS: Stated complaint: ABD PAIN/BLEEDING Other details as noted in HPI Constitutional: denies: chills, fever Eyes: denies: eye pain, eye discharge, vision change ENT: denies: ear pain, throat pain Respiratory: denies: cough, shortness of breath, wheezing Cardiovascular: denies: chest pain, palpitations Endocrine: no symptoms reported Gastrointestinal: abdominal pain. denies: nausea, vomiting, diarrhea, constipation, melena Genitourinary: denies: urgency, dysuria, hematuria, discharge Musculoskeletal: denies: back pain, joint swelling, arthralgia Skin: denies: rash, lesions Neurological: denies: headache, weakness, paresthesias Psychiatric: denies: anxiety, depression Hematological/Lymphatic: denies: easy bleeding, easy bruising ED Past Medical Hx - Past Medical History Previous Medical History?: Yes Hx Congestive Heart Failure: No Hx Diabetes: No Hx Asthma: Yes Hx COPD: No - Surgical History Past Surgical History?: Yes - Social History Smoking Status: Current Every Day Smoker Substance Use Type: None - Medications Home Medications: Home Medications Medication Instructions Recorded Confirmed Last Taken Type Ciprofloxacin HCl [Cipro] 500 mg PO Q12H #20 tablet 12/31/16 Unknown Rx Famotidine [Pepcid] 20 mg PO BID #30 tablet 12/31/16 Unknown Rx Ibuprofen [Motrin 800 MG tab] 800 mg PO Q8HR PRN #30 tablet 03/03/19 Unknown Rx medroxyPROGESTERone ACETATE 10 mg PO QDAY #10 tablet 03/03/19 Unknown Rx [Provera] ED Physical Exam - General Limitations: No Limitations General appearance: alert, in no apparent distress - Head Head exam: Present: atraumatic, normocephalic - Eye Eye exam: Present: normal appearance, PERRL, EOMI Pupils: Present: normal accommodation - ENT ENT exam: Present: mucous membranes moist - Neck Neck exam: Present: normal inspection, full ROM. Absent: tenderness, lymphadenopathy, thyromegaly - Respiratory Respiratory exam: Present: normal lung sounds bilaterally. Absent: respiratory distress, wheezes, stridor, chest wall tenderness - Cardiovascular Cardiovascular Exam: Present: regular rate, normal rhythm, normal heart sounds. Absent: systolic murmur, diastolic murmur, rubs, gallop - GI/Abdominal GI/Abdominal exam: Present: soft, normal bowel sounds. Absent: distended, tenderness, guarding, rebound, rigid, bruit, hernia - Rectal Rectal exam: Present: deferred - External exam: Present: other (pt deferrs exam ) - Extremities Exam Extremities exam: Present: normal inspection - Back Exam Back exam: Present: normal inspection, full ROM. Absent: tenderness, CVA tenderness (R), CVA tenderness (L), rash noted - Neurological Exam Neurological exam: Present: alert, oriented X3, CN II-XII intact, normal gait - Psychiatric Psychiatric exam: Present: normal affect, normal mood - Skin Skin exam: Present: warm, dry, intact, normal color. Absent: rash ED Course Vital Signs 03/03/19 14:09 Temperature 99.0 F Pulse Rate 120 H Respiratory 16 Rate Blood Pressure 146/85 O2 Sat by Pulse 100 Oximetry ED Medical Decision Making - Lab Data Result diagrams: 03/03/19 15:25 03/03/19 15:25 Labs 03/03/19 03/03/19 03/03/19 15:25 15:25 15:25 WBC 8.7 RBC 3.98 Hgb 6.8 L Hct 22.2 L MCV 56 L MCH 17 L MCHC 31 RDW 20.4 H Plt Count 237 Lymph % (Auto) 33.2 [place] % (Auto) 7.8 H Eos % (Auto) 1.8 Baso % (Auto) 0.7 Lymph # 2.9 [place] # 0.7 Eos # 0.2 Baso # 0.1 Seg Neutrophils % 56.5 Seg Neutrophils # 4.9 Sodium 138 Potassium 4.0 Chloride 104.2 Carbon Dioxide 20 L Anion Gap 18 BUN 12 Creatinine 1.1 Estimated GFR > 60 BUN/Creatinine Ratio 11 Glucose 110 H Calcium 9.5 HCG, Qual Negative Urine Color Urine Turbidity Urine pH Ur Specific [place] Urine Protein Urine Glucose (UA) Urine Ketones Urine Blood Urine Nitrite Urine Bilirubin Urine Urobilinogen Ur Leukocyte Esterase Urine WBC (Auto) Urine RBC (Auto) U Epithel Cells (Auto) Urine Mucus 03/03/19 16:15 WBC RBC Hgb Hct MCV MCH MCHC RDW Plt Count Lymph % (Auto) [place] % (Auto) Eos % (Auto) Baso % (Auto) Lymph # [place] # Eos # Baso # Seg Neutrophils % Seg Neutrophils # Sodium Potassium Chloride Carbon Dioxide Anion Gap BUN Creatinine Estimated GFR BUN/Creatinine Ratio Glucose Calcium HCG, Qual Urine Color Yellow Urine Turbidity Slightly-cloudy Urine pH 5.0 Ur Specific [place] 1.031 H Urine Protein 30 mg/dl Urine Glucose (UA) Neg Urine Ketones Neg Urine Blood Lg Urine Nitrite Neg Urine Bilirubin Neg Urine Urobilinogen < 2.0 Ur Leukocyte Esterase Neg Urine WBC (Auto) 3.0 Urine RBC (Auto) > 182.0 U Epithel Cells (Auto) 3.0 Urine Mucus 2+ L - Radiology Data Radiology results: report reviewed, image reviewed Ordering Physician: JAC ALEXANDER NP Date of Service: 03/03/19 Procedure(s): US pelvic complete Accession Number(s): [id number] cc: JAC ALEXANDER NP Pelvic ultrasound complete INDICATION: Vaginal bleeding FINDINGS: The uterus measures 9.3 cm in length. Endometrial stripe measures 13 mm. The right ovary measures 3.1 cm in length and left ovary measures 4.1 cm in length. There are no adnexal masses. There is no fluid. IMPRESSION: Pelvic ultrasound is within normal limits. Signer Name: Ismael Arias MD Signed: 03/03/2019 8:50 PM Workstation Name: [id number] Transcribed By: SS Dictated By: Ismael Arias MD Electronically Authenticated By: Ismael Arias MD Signed Date/Time: 03/03/192049 DD/ 43 TD/TT: - Medical Decision Making US: no mass ,no cyst ,no fibroid, UA: rbc, h/h 6.8/22.8 Jordy SETH , pt declines blood transfusion,pt has had the opportunity to ask and I have answered all questions to her satisfaction and she has made the decision to leave against medical advise. pt is currently a/o x 3, with nad. ambulatory with nad, there is no sob, no tachycardia, no dizziness, no lightheadedness, no headache, pt demonstrates sound decision making capacity at this time. Pt will sign out ama. plan: provera, ibuprofen, follow up with [facility] will sign out ama at this time. Critical care attestation.: If time is entered above; I have spent that time in minutes in the direct care of this critically ill patient, excluding procedure time. ED Disposition Clinical Impression: Abnormal uterine bleeding (AUB) Anemia Qualifiers: Anemia type: unspecified type Qualified Code(s): D64.9 - Anemia, unspecified Disposition: DC-07 LEFT AGAINST MED ADVICE Is pt being admited?: No Does the pt Need Aspirin: No Condition: Undetermined Instructions: Menorrhagia (ED), Dysmenorrhea (ED) Prescriptions: Ibuprofen [Motrin 800 MG tab] 800 mg PO Q8HR PRN #30 tablet PRN Reason: pain medroxyPROGESTERone ACETATE [Provera] 10 mg PO QDAY #10 tablet Referrals: ALBINA MCCAULEY MD [Staff Physician] - 3-5 Days Forms: Work/School Release Form(ED) Time of Disposition: 22:11
--- NOTE | 2019-03-03 20:55 | Ultrasound Report ---
Pelvic ultrasound complete INDICATION: Vaginal bleeding FINDINGS: The uterus measures 9.3 cm in length. Endometrial stripe measures 13 mm. The right ovary measures 3.1 cm in length and left ovary measures 4.1 cm in length. There are no adnexal masses. There is no flui d. IMPRESSION: Pelvic ultrasound is within normal limits. Signer Name: Ismael Arias MD Signed: 03/03/2019 8:50 PM Workstation Name: [id number]
== END 2019-03-03 22:24 | disposition left against medical advice (07) ==
LOC: ED 14:06
DX: D64.9 Anemia, unspecified (principal); J45.909 Unspecified asthma, uncomplicated; F17.200 Nicotine dependence, unspecified, uncomplicated; Z79.899 Other long term (current) drug therapy; Z91.013 Allergy to seafood; Z91.018 Allergy to other foods
CPT/HCPCS: 36415; 76856; 80048; 81001; 84703; 85025; 96374; 96375; 99284; J1885; J2405

== ENCOUNTER 2019-12-20 14:57 | Emergency (ER) | payer SELFPAY ==
[2019-12-20 15:11] VITALS: BP 124/88
--- NOTE | 2019-12-20 16:49 | XRay Report ---
LEFT KNEE 3 VIEWS INDICATION / CLINICAL INFORMATION: knee pain s/p fall. COMPARISON: None available. FINDINGS: No fracture or other significant skeletal abnormality. No evidence of significant joint effusion or h emarthrosis. Signer Name: Keegan Dior MD Signed: 12/20/2019 4:44 PM Workstation Name: [id number]
--- NOTE | 2019-12-20 16:58 | Emergency Department Report ---
ED Lower Extremity HPI - General Chief Complaint: Extremity Injury, Lower Stated Complaint: LT KNEE PAINS Time Seen by Provider: 12/20/19 16:08 Source: patient Mode of arrival: Ambulatory Limitations: No Limitations - History of Present Illness Initial Comments: This is a 24-year-old female nontoxic, well nourished in appearance, no acute signs of distress presents to the ED with c/o of left knee pain s/p fall several days ago. Patient denies any other trauma or injuries. Denies any neck or back pains. Denies any right knee pains. Stated just wants to get it xrayed. Denies any LOC. Denies decreased ROM, joint swelling, redness, or abnormal gait. Denies any fever, chills, nausea, vomiting, headache, stiff neck, chest pain or shortness of breath. Patient denies any numbness or tingling. Denies any allergies. MD Complaint: knee injury -: days(s) Injury: Knee: Left Severity: mild Severity scale (0 -10): 3 Improves With: immobilization Worsens With: palpation Context: fall Associated Symptoms: ambulatory. denies: snap/pop sensation, swelling, numbness, tingling, unable to bear weight, able to partially bear weight - Related Data Previous Rx's Medication Instructions Recorded Last Taken Type Ciprofloxacin HCl [Cipro] 500 mg PO Q12H #20 tablet 12/31/16 Unknown Rx Famotidine [Pepcid] 20 mg PO BID #30 tablet 12/31/16 Unknown Rx Ibuprofen [Motrin 800 MG tab] 800 mg PO Q8HR PRN #30 tablet 03/03/19 Unknown Rx medroxyPROGESTERone ACETATE 10 mg PO QDAY #10 tablet 03/03/19 Unknown Rx [Provera] Naproxen 500 mg PO Q12H PRN #12 tablet 12/20/19 Unknown Rx Allergies Allergy/AdvReac Type Severity Reaction Status Date / Time fish derived Allergy Swelling Verified 12/24/16 06:10 strawberry Allergy Swelling Verified 12/24/16 06:10 ED Review of Systems ROS: Stated complaint: LT KNEE PAINS Other details as noted in HPI Comment: All other systems reviewed and negative Constitutional: denies: chills, fever Eyes: denies: eye pain, eye discharge, vision change ENT: denies: ear pain, throat pain Respiratory: denies: cough, shortness of breath, wheezing Cardiovascular: denies: chest pain, palpitations Endocrine: no symptoms reported Gastrointestinal: denies: abdominal pain, nausea, diarrhea Genitourinary: denies: urgency, dysuria, discharge Musculoskeletal: denies: back pain, joint swelling, arthralgia Skin: denies: rash, lesions Neurological: denies: headache, weakness, paresthesias Psychiatric: denies: anxiety, depression Hematological/Lymphatic: denies: easy bleeding, easy bruising ED Past Medical Hx - Past Medical History Previous Medical History?: Yes Hx Congestive Heart Failure: No Hx Diabetes: No Hx Asthma: Yes Hx COPD: No - Surgical History Past Surgical History?: No - Social History Smoking Status: Never Smoker Substance Use Type: None - Medications Home Medications: Home Medications Medication Instructions Recorded Confirmed Last Taken Type Ciprofloxacin HCl [Cipro] 500 mg PO Q12H #20 tablet 12/31/16 Unknown Rx Famotidine [Pepcid] 20 mg PO BID #30 tablet 12/31/16 Unknown Rx Ibuprofen [Motrin 800 MG tab] 800 mg PO Q8HR PRN #30 tablet 03/03/19 Unknown Rx medroxyPROGESTERone ACETATE 10 mg PO QDAY #10 tablet 03/03/19 Unknown Rx [Provera] Naproxen 500 mg PO Q12H PRN #12 tablet 12/20/19 Unknown Rx ED Physical Exam - General Limitations: No Limitations General appearance: alert, in no apparent distress - Head Head exam: Present: atraumatic, normocephalic - Eye Eye exam: Present: normal appearance - Neck Neck exam: Present: normal inspection, full ROM - Respiratory Respiratory exam: Absent: respiratory distress - Cardiovascular Cardiovascular Exam: Present: regular rate - Extremities Exam Extremities exam: Present: normal inspection, full ROM, tenderness, normal capillary refill. Absent: joint swelling, calf tenderness - Expanded Lower Extremity Exam Left Hip exam: Present: normal inspection, full ROM. Absent: tenderness, swelling Upper Leg exam: Present: normal inspection, full ROM. Absent: tenderness, swelling Knee exam: Present: normal inspection, full ROM, tenderness, full knee extension. Absent: swelling, abrasion, laceration, ecchymosis, deformity, crepidus, dislocation, erythema, effusion, pain w/ pronation/supination, posterior draw sign, pain/laxity with valgus, pain/laxity with varus Lower Leg exam: Present: normal inspection, full ROM. Absent: tenderness, swelling Ankle exam: Present: normal inspection, full ROM. Absent: tenderness, swelling Foot/Toe exam: Present: normal inspection, full ROM. Absent: tenderness, swelling Neuro vascular tendon exam: Present: no vascular compromise Gait: Positive: observed and normal - Back Exam Back exam: Present: normal inspection, full ROM. Absent: tenderness, CVA tenderness (R), CVA tenderness (L), muscle spasm, paraspinal tenderness, vertebral tenderness, rash noted - Neurological Exam Neurological exam: Present: alert, oriented X3, normal gait - Psychiatric Psychiatric exam: Present: normal affect, normal mood - Skin Skin exam: Present: warm, dry, intact, normal color. Absent: rash ED Course Vital Signs 12/20/19 15:09 Temperature 99.2 F Pulse Rate 108 H Respiratory 18 Rate Blood Pressure 124/88 [Right] O2 Sat by Pulse 99 Oximetry - Reevaluation(s) Reevaluation #1: 12/20/19 17:02 Patient is speaking in full sentences with no signs of distress noted. ED Lower Extremity MDM - Radiology Data Referring Physician: RAVIN URIBE Patient Name: FREDERICK JOHNSON Date of : 1995 Sex: Female Report Date: 2019-12-20 Report Status: Finalized [address] [address] XRay Report Signed Patient: FREDERICK JOHNSON MR#: [id number] : 1995 Acct:[id number] Age/Sex: 24 / F ADM Date: 12/20/19 Loc: ED Attending Dr: Ordering Physician: RAVIN URIBE NP Date of Service: 12/20/19 Procedure(s): XR knee 3V LT Accession Number(s): [id number] cc: RAVIN URIBE NP Fluoro Time In Minutes: LEFT KNEE 3 VIEWS INDICATION / CLINICAL INFORMATION: knee pain s/p fall. COMPARISON: None available. FINDINGS: No fracture or other significant skeletal abnormality. No evidence of significant joint effusion or hemarthrosis. Signer Name: Keegan Dior MD Signed: 12/20/2019 4:44 PM Workstation Name: [id number] Transcribed By: TM Dictated By: Keegan Dior MD Electronically Authenticated By: Keegan Dior MD Signed Date/Time: 12/20/191643 DD/ 42 TD/TT: - Medical Decision Making This is a 24-year-old female that presents with left knee strain. Patient is stable and was examined by me. Exam of right knee was unremarkable and within normal limits. Patient is notified of the xray results with on question noted by the patient. No joint effusion, no redness, no decreased ROM. Patient was instructed to Follow-up with a orthopedic doctor in 3-5 days or if symptoms worsen and continue return to emergency room as soon as possible. At time of discharge, the patient does not seem toxic or ill in appearance. No acute signs of distress noted. Patient agrees to discharge treatment plan of care. No further questions noted by the patient. Critical care attestation.: If time is entered above; I have spent that time in minutes in the direct care of this critically ill patient, excluding procedure time. ED Disposition Clinical Impression: Strain of left knee Disposition: DC-01 TO HOME OR SELFCARE Is pt being admited?: No Does the pt Need Aspirin: No Condition: Stable Instructions: Muscle Strain, [id number], RICE Therapy for Routine Care of Injuries, [id number] Additional Instructions: Follow-up with a orthopedic doctor in 3-5 days or if symptoms worsen and continue return to emergency room as soon as possible. No physical activity until cleared by orthopedic doctor. Prescriptions: Naproxen 500 mg PO Q12H PRN #12 tablet PRN Reason: Pain , Severe (7-10) Referrals: PRIMARY [facility]EMD [Referring] - 3-5 Days MELISSA OVERTON MD [Staff Physician] - 3-5 Days Forms: Work/School Release Form(ED)
== END 2019-12-20 21:06 | disposition home or self-care (01) ==
LOC: ED 14:57
DX: S86.812A Strain of other muscle(s) and tendon(s) at lower leg level, left leg, initial encounter (principal); X58.XXXA Exposure to other specified factors, initial encounter; Y93.89 Activity, other specified; Y92.89 Other specified places as the place of occurrence of the external cause; Y99.8 Other external cause status
CPT/HCPCS: 99281